=== PATIENT | male | born 1935 | race Caucasian/White ===

== ENCOUNTER 2023-06-18 20:25 | Emergency (ER) | payer MEDICARE, OTHER ==
[2023-06-18] MEDS ORDERED: Sodium Chloride 0.9% 1,000 ML IV ONE (22:15)
[2023-06-18] MEDS ORDERED: Sodium Chloride 0.9% 10 ML Syringe FLUSH PRN (22:26)
[2023-06-18] MEDS ORDERED: Sodium Chloride 0.9% 500 ML IV ONE (22:27)
== END 2023-06-18 23:44 ==
LOC: LB.ED 20:25
DX: K40.30 Unilateral inguinal hernia, with obstruction, without gangrene, not specified as recurrent (principal); E86.0 Dehydration
CPT/HCPCS: 96360; 99284-25; J7030